=== PATIENT | female | born 1995 | race African-American/Black ===

== ENCOUNTER 2018-01-10 17:45 | Emergency (ER) | payer OTHER ==
[~2018-01-10] VITALS: Ht 162.6 cm; Wt 90.7 kg
[~2018-01-10 17:45] MED LIST: BACTRIM DS TAB1 EACH PO; BIRTH CONTROL; BIRTH CONTROL PILL; CIPROFLOXACIN500 M1 PO; FLAGYL500 MG PO; GILDESS FE 1-21 EACH; HYDROCODONE-AP1 EAC6 PO; LOPERAMIDE 2 MG2 M1 PO; MACROBID 100 M100 M1 PO; NAPROSYN500 MG PO; NORCO 5-325 TA1 EACH PO; ONDANSETRON HCL4 M2 PO; PHENERGAN 25 MG25 M1 PO; TRAMADOL 50 MG50 MG PO; TYLENOL325 MG PO; ULTRAM 50MG TAB50 MG PO; VENTOLIN HFA 1818 GM INH; VITAFOL-OB+DHA1 EACH PO; ZOFRAN ODT4 MG PO; ZOFRAN4 MG PO
[2018-01-10 18:48] LABS: URINE BLOOD NEGATIVE (Negative); URINE CLARITY CLEAR; URINE COLOR YELLOW; URINE GLUCOSE-RANDOM* NEGATIVE (Negative); URINE KETONES 2+ (Negative); URINE LEUKOCYTES-REFLEX NEGATIVE (Negative); URINE NITRITE-REFLEX NEGATIVE (Negative); URINE PROTEIN (DIPSTICK) NEGATIVE (Negative); URINE SPECIFIC GRAVITY >= 1.030 (1.005-1.035); URINE UROBILINOGEN 0.2 E.U./dl (0.2-1.0)
[2018-01-10 19:11] LABS: URINE BILIRUBIN NEGATIVE (Negative)
[2018-01-10] MEDS ORDERED: ZOFRAN ODT4 MG PO (20:29)
== END 2018-01-10 20:35 | disposition home or self-care (01) ==
LOC: ER 17:45
PROVIDERS: Emergency Medicine
DX: R11.2 Nausea with vomiting, unspecified (principal); R19.7 Diarrhea, unspecified; Z88.6 Allergy status to analgesic agent

== ENCOUNTER 2018-11-02 09:33 | Emergency (ER) | payer OTHER ==
[~2018-11-02] VITALS: Ht 165.1 cm; Wt 86.2 kg
[2018-11-02 09:55] LABS: URINE BILIRUBIN NEGATIVE (Negative); URINE BLOOD NEGATIVE (Negative); URINE CLARITY CLEAR; URINE COLOR YELLOW; URINE GLUCOSE-RANDOM* NEGATIVE (Negative); URINE KETONES NEGATIVE (Negative); URINE LEUKOCYTES-REFLEX NEGATIVE (Negative); URINE NITRITE-REFLEX NEGATIVE (Negative); URINE PROTEIN (DIPSTICK) NEGATIVE (Negative); URINE UROBILINOGEN 0.2 E.U./dl (0.2-1.0)
[2018-11-02 10:45] LABS: ABSOLUTE NEUTROPHILS 1.8 thou/uL (1.4-8.2); BASOPHILS 1.1 % (0.0-2.0); EOSINOPHILS 19.6 % (0.0-3.0); HEMATOCRIT 40.4 % (37.0-47.0); LYMPHOCYTES 33.3 % (24.0-44.0); MCH 27.4 pg (26.0-34.0); MCHC 32.3 g/dL (28.0-37.0); MCV 84.9 fL (80.0-100.0); PLATELET COUNT 234 thou/uL (150-400); RBC 4.76 mil/uL (4.20-5.00); RDW 13.3 % (10.5-14.5); WBC 4.8 thou/uL (4.0-11.0)
[2018-11-02 10:55] LABS: CREATININE 0.6 mg/dL (0.6-1.0); POTASSIUM 3.9 mmol/L (3.5-5.1)
[2018-11-02 11:00] LABS: ALBUMIN 3.6 g/dL (3.4-5.0); TOTAL BILIRUBIN 0.2 mg/dL (<0.1-1.0); TOTAL PROTEIN 7.6 g/dL (6.4-8.2)
[2018-11-02] MEDS ORDERED: BENTYL 20 MG TA20 M1 PO (11:09)
[2018-11-02 11:10] VITALS: BP 124/62
== END 2018-11-02 11:20 | disposition home or self-care (01) ==
LOC: ER 09:33
PROVIDERS: Nurse Practitioner Family
DX: N94.10 Unspecified dyspareunia (principal); K62.89 Other specified diseases of anus and rectum; Z88.6 Allergy status to analgesic agent

== ENCOUNTER 2019-03-31 11:07 | Emergency (ER) | payer OTHER ==
[~2019-03-31] VITALS: Ht 165.1 cm; Wt 84.8 kg
[~2019-03-31 11:07] MED LIST changes: +BENTYL 20 MG TA20 M1 PO
[2019-03-31 11:08] VITALS: BP 139/76
[2019-03-31 11:40] LABS: URINE BILIRUBIN 2+ (Negative); URINE BLOOD NEGATIVE (Negative); URINE CLARITY CLEAR; URINE COLOR YELLOW; URINE GLUCOSE-RANDOM* NEGATIVE (Negative); URINE KETONES 1+ (Negative); URINE LEUKOCYTES-REFLEX NEGATIVE (Negative); URINE NITRITE-REFLEX NEGATIVE (Negative); URINE PROTEIN (DIPSTICK) TRACE (Negative); URINE SPECIFIC GRAVITY >= 1.030 (1.005-1.035)
[2019-03-31 11:41] LABS: ICTOTEST (BILI CONFIRMATORY) Negative (Negative)
[2019-03-31 11:47] LABS: FINE GRANULAR CASTS 0-3 Few /LPF (None Seen)
[2019-03-31 11:49] LABS: YEAST-REFLEX Present (None Seen)
[2019-03-31 11:50] LABS: BACTERIA-REFLEX 1-9 Few /HPF (None Seen)
[2019-03-31 11:51] LABS: URINE WBC-REFLEX 0-5 Rare /HPF (0-5)
[2019-03-31 11:52] LABS: MUCUS 0-3 Light strn/LPF (None Seen); SQUAMOUS 4-10 Moderate /LPF (0-3); URINE RBC None Seen /HPF (0-2)
[2019-03-31 11:53] LABS: CRYSTALS None Seen /LPF (None Seen)
[2019-03-31 12:48] LABS: CASTS None Seen /LPF (None Seen)
[2019-03-31] MEDS ORDERED: DIFLUCAN200 MG PO (13:13)
[2019-03-31] MEDS ORDERED: KEFLEX500 M1 PO (13:13)
[2019-03-31] MEDS ORDERED: PHENAZOPYRIDIN200 M2 PO (13:14)
== END 2019-03-31 13:33 | disposition home or self-care (01) ==
LOC: ER 11:07
PROVIDERS: Physician Assistant
DX: N39.0 Urinary tract infection, site not specified (principal); Z88.6 Allergy status to analgesic agent

== ENCOUNTER 2019-07-13 18:04 | Emergency (ER) | payer OTHER ==
[~2019-07-13] VITALS: Ht 165.1 cm; Wt 83.9 kg
[~2019-07-13 18:04] MED LIST changes: +DIFLUCAN200 MG PO; +KEFLEX500 M1 PO; +PHENAZOPYRIDIN200 M2 PO
[2019-07-13 19:46] LABS: URINE BLOOD NEGATIVE (Negative); URINE CLARITY CLEAR; URINE COLOR YELLOW; URINE GLUCOSE-RANDOM* NEGATIVE (Negative); URINE KETONES 1+ (Negative); URINE LEUKOCYTES-REFLEX NEGATIVE (Negative); URINE NITRITE-REFLEX NEGATIVE (Negative); URINE PROTEIN (DIPSTICK) 1+ (Negative); URINE SPECIFIC GRAVITY >= 1.030 (1.005-1.035)
[2019-07-13 19:47] LABS: ICTOTEST (BILI CONFIRMATORY) Negative (Negative); URINE BILIRUBIN NEGATIVE (Negative)
[2019-07-13 20:05] LABS: BACTERIA-REFLEX 1-9 Few /HPF (None Seen); CASTS None Seen /LPF (None Seen); CRYSTALS None Seen /LPF (None Seen); SQUAMOUS 0-3 Few /LPF (0-3); URINE RBC None Seen /HPF (0-2); URINE WBC-REFLEX None Seen /HPF (0-5)
[2019-07-13] MEDS ORDERED: NORCO 5-325 TA1 EAC1 PO (20:43)
[2019-07-13 20:55] VITALS: BP 148/65
== END 2019-07-13 20:55 | disposition home or self-care (01) ==
LOC: ER 18:04
PROVIDERS: Physician Assistant
DX: O34.81 Maternal care for other abnormalities of pelvic organs, first trimester (principal); N83.201 Unspecified ovarian cyst, right side; Z3A.11 11 weeks gestation of pregnancy; Z88.6 Allergy status to analgesic agent; Z79.899 Other long term (current) drug therapy

== ENCOUNTER 2019-08-16 20:40 | Emergency (ER) | payer OTHER ==
[~2019-08-16] VITALS: Ht 152.4 cm; Wt 79.4 kg
[~2019-08-16 20:40] MED LIST changes: +NORCO 5-325 TA1 EAC1 PO
[2019-08-16] MEDS ORDERED: TYLENOL325 MG PO (20:46)
[2019-08-16] MEDS ORDERED: PRENATAL PO (20:46)
[2019-08-16 22:58] LABS: URINE BILIRUBIN NEGATIVE (Negative); URINE BLOOD NEGATIVE (Negative); URINE CLARITY CLOUDY; URINE COLOR YELLOW; URINE GLUCOSE-RANDOM* NEGATIVE (Negative); URINE KETONES 3+ (Negative); URINE LEUKOCYTES-REFLEX NEGATIVE (Negative); URINE NITRITE-REFLEX NEGATIVE (Negative); URINE PROTEIN (DIPSTICK) NEGATIVE (Negative); URINE SPECIFIC GRAVITY >= 1.030 (1.005-1.035); URINE UROBILINOGEN 0.2 E.U./dl (0.2-1.0)
[2019-08-16 23:55] VITALS: BP 132/78
== END 2019-08-17 00:34 | disposition home or self-care (01) ==
LOC: ER 20:40
PROVIDERS: Physician Assistant
DX: O26.892 Other specified pregnancy related conditions, second trimester (principal); N83.201 Unspecified ovarian cyst, right side; R10.31 Right lower quadrant pain; Z3A.16 16 weeks gestation of pregnancy; Z88.6 Allergy status to analgesic agent